=== PATIENT | female | born 1980 | race Two or more races ===

== ENCOUNTER 2017-08-01 11:15 | Observation (INO) | payer MEDICAID ==
[~2017-08-01] VITALS: Ht 160 cm; Wt 54.4 kg
[2017-08-01] MEDS ORDERED: BETAMETHASONE ACET (6MG/ML) 5ML VIAL ONE (11:52)
[2017-08-01] MEDS ORDERED: PREN-96 PO (11:59)
[2017-08-01] MEDS ORDERED: BETAMETHASONE ACET (6MG/ML) 5ML VIAL IM ONE (12:00)
[2017-08-02] MEDS ORDERED: PROG200C6 PO (17:44)
== END 2017-08-01 12:25 | disposition home or self-care (01) | DRG 566 ==
LOC: LDRP 11:15
PROVIDERS: ADMIT Obstetrics & Gynecology; ATTEND Obstetrics & Gynecology
DX: O26.93 Pregnancy related conditions, unspecified, third trimester (principal); O09.523 Supervision of elderly multigravida, third trimester; Z3A.28 28 weeks gestation of pregnancy
CPT/HCPCS: 59025; 81002; 96372; G0378; J0702

== ENCOUNTER 2017-08-02 12:25 | Observation (INO) | payer MEDICAID ==
[~2017-08-02 12:25] MED LIST: PREN-96 PO
[2017-08-02] MEDS ORDERED: BETAMETHASONE ACET (6MG/ML) 5ML VIAL IM ONE (13:00)
[2017-08-02] MEDS ORDERED: PROG200C6 PO (17:44)
== END 2017-08-02 13:25 | disposition home or self-care (01) | DRG 563 ==
LOC: LDRP 12:25
PROVIDERS: ADMIT Obstetrics & Gynecology; ATTEND Obstetrics & Gynecology
DX: O60.00 Preterm labor without delivery, unspecified trimester (principal); O09.529 Supervision of elderly multigravida, unspecified trimester; Z3A.00 Weeks of gestation of pregnancy not specified
CPT/HCPCS: 59025; 81002; 96372; G0378

== ENCOUNTER 2017-08-04 14:10 | Observation (INO) | payer MEDICAID ==
[~2017-08-04 14:10] MED LIST changes: +PROG200C6 PO
[2017-08-04] MEDS ORDERED: PROGSUP4 VA (14:54)
== END 2017-08-04 15:10 | disposition home or self-care (01) | DRG 566 ==
LOC: LDRP 14:10
PROVIDERS: ADMIT Obstetrics & Gynecology; ATTEND Obstetrics & Gynecology
DX: O36.8130 Decreased fetal movements, third trimester, not applicable or unspecified (principal); O60.03 Preterm labor without delivery, third trimester; Z3A.28 28 weeks gestation of pregnancy
CPT/HCPCS: 59025; 81002; G0378

== ENCOUNTER 2017-08-09 14:00 | Observation (INO) | payer MEDICAID ==
[~2017-08-09 14:00] MED LIST changes: -PROG200C6 PO; +PROGSUP4 VA
== END 2017-08-09 15:35 | disposition home or self-care (01) | DRG 566 ==
LOC: LDRP 14:00
PROVIDERS: ADMIT Specialist; ATTEND Specialist
DX: O26.893 Other specified pregnancy related conditions, third trimester (principal); Z3A.29 29 weeks gestation of pregnancy
CPT/HCPCS: 59025; 76815; 81002; G0378

== ENCOUNTER 2017-08-16 13:10 | Observation (INO) | payer MEDICAID | END 2017-08-16 15:25 | disposition home or self-care (01) | DRG 563 | LOC: LDRP 13:10 | PROVIDERS: ADMIT Specialist; ATTEND Specialist | DX: O60.03 Preterm labor without delivery, third trimester (principal); Z3A.30 30 weeks gestation of pregnancy | CPT/HCPCS: 59025; 76815; 81002; G0378 ==

== ENCOUNTER 2017-08-21 13:05 | Observation (INO) | payer MEDICAID ==
[~2017-08-21 13:05] MED LIST changes: -PROGSUP4 VA
== END 2017-08-21 14:00 | disposition home or self-care (01) | DRG 566 ==
LOC: LDRP 13:05
PROVIDERS: ADMIT Obstetrics & Gynecology; ATTEND Obstetrics & Gynecology
DX: O26.893 Other specified pregnancy related conditions, third trimester (principal); Z3A.30 30 weeks gestation of pregnancy
CPT/HCPCS: 59025; 81002; G0378

== ENCOUNTER 2017-08-28 12:35 | Observation (INO) | payer MEDICAID ==
[2017-08-28] MEDS ORDERED: NIF10C PO (13:07)
== END 2017-08-28 14:00 | disposition home or self-care (01) | DRG 563 ==
LOC: LDRP 12:35
PROVIDERS: ADMIT Specialist; ATTEND Specialist
DX: O60.03 Preterm labor without delivery, third trimester (principal); Z3A.31 31 weeks gestation of pregnancy
CPT/HCPCS: 76815; G0378; 59025; 81002

== ENCOUNTER 2017-09-04 13:20 | Observation (INO) | payer MEDICAID ==
[~2017-09-04 13:20] MED LIST changes: +NIF10C PO
== END 2017-09-04 14:30 | disposition home or self-care (01) | DRG 566 ==
LOC: LDRP 13:20
PROVIDERS: ADMIT Obstetrics & Gynecology; ATTEND Obstetrics & Gynecology
DX: O24.419 Gestational diabetes mellitus in pregnancy, unspecified control (principal); O46.93 Antepartum hemorrhage, unspecified, third trimester; Z3A.31 31 weeks gestation of pregnancy
CPT/HCPCS: 59025; 81002; G0378

== ENCOUNTER 2017-09-11 13:30 | Observation (INO) | payer MEDICAID | END 2017-09-11 14:50 | disposition home or self-care (01) | DRG 563 | LOC: LDRP 13:30 | PROVIDERS: ADMIT Obstetrics & Gynecology; ATTEND Obstetrics & Gynecology | DX: O60.03 Preterm labor without delivery, third trimester (principal); Z3A.33 33 weeks gestation of pregnancy | CPT/HCPCS: 59025; 76815; 81002; G0378 ==

== ENCOUNTER 2017-09-18 11:30 | Observation (INO) | payer MEDICAID | END 2017-09-18 12:50 | disposition home or self-care (01) | DRG 566 | LOC: LDRP 11:30 | PROVIDERS: ADMIT Obstetrics & Gynecology; ATTEND Obstetrics & Gynecology | DX: O26.893 Other specified pregnancy related conditions, third trimester (principal); M54.9 Dorsalgia, unspecified; R10.30 Lower abdominal pain, unspecified; Z3A.34 34 weeks gestation of pregnancy | CPT/HCPCS: 59025; 81002; G0378 ==

== ENCOUNTER 2017-09-25 10:45 | Observation (INO) | payer MEDICAID ==
[~2017-09-25] VITALS: Ht 162.6 cm; Wt 56.7 kg
[2017-09-25] MEDS: TERBUTALINE SULFATE 1 MG/ML 1ML VIAL SC SCH ×3 (11:51→12:20)
[2017-09-25] MEDS ORDERED: NIFEdipine 10 MG CAP ONE (12:32)
[2017-09-25] MEDS ORDERED: NIFEdipine 10 MG CAP PO ONE (12:45)
== END 2017-09-25 12:55 | disposition home or self-care (01) | DRG 563 ==
LOC: LDRP 10:45
PROVIDERS: ADMIT Specialist; ATTEND Specialist
DX: O60.03 Preterm labor without delivery, third trimester (principal); Z3A.35 35 weeks gestation of pregnancy
CPT/HCPCS: 59025; 81002; 96372; G0378

== ENCOUNTER 2017-10-02 10:15 | Observation (INO) | payer MEDICAID | END 2017-10-02 10:55 | disposition home or self-care (01) | DRG 566 | LOC: LDRP 10:15 | PROVIDERS: ADMIT Obstetrics & Gynecology; ATTEND Obstetrics & Gynecology | DX: O26.93 Pregnancy related conditions, unspecified, third trimester (principal); Z3A.36 36 weeks gestation of pregnancy | CPT/HCPCS: 59025; 81002; G0378 ==

== ENCOUNTER 2017-10-09 10:25 | Observation (INO) | payer MEDICAID | END 2017-10-09 12:10 | disposition home or self-care (01) | DRG 566 | LOC: LDRP 10:25 | PROVIDERS: ADMIT Obstetrics & Gynecology; ATTEND Obstetrics & Gynecology | DX: O26.893 Other specified pregnancy related conditions, third trimester (principal); Z3A.37 37 weeks gestation of pregnancy | CPT/HCPCS: 59025; 76818; 81002; G0378 ==

== ENCOUNTER 2017-10-16 10:30 | Observation (INO) | payer MEDICAID ==
[~2017-10-16 10:30] MED LIST changes: -NIF10C PO
[2017-10-16] MEDS ORDERED: PREN-96 PO (11:57)
== END 2017-10-16 11:45 | disposition home or self-care (01) | DRG 566 ==
LOC: LDRP 10:30
PROVIDERS: ADMIT Obstetrics & Gynecology; ATTEND Obstetrics & Gynecology
DX: O26.893 Other specified pregnancy related conditions, third trimester (principal); Z3A.38 38 weeks gestation of pregnancy
CPT/HCPCS: 59025; 81002; G0378

== ENCOUNTER 2017-10-23 10:38 | Observation (INO) | payer MEDICAID | END 2017-10-23 13:00 | disposition home or self-care (01) | DRG 566 | LOC: LDRP 10:38 | PROVIDERS: ADMIT Obstetrics & Gynecology; ATTEND Obstetrics & Gynecology | DX: O32.1XX0 Maternal care for breech presentation, not applicable or unspecified (principal); O48.0 Post-term pregnancy; Z3A.40 40 weeks gestation of pregnancy | CPT/HCPCS: 59025; 76818; 81002; G0378 ==

== ENCOUNTER 2017-10-24 08:40 | Inpatient (IN) | payer MEDICAID ==
[2017-10-24] VITALS (11 sets, daily range): BP systolic 97–139; BP diastolic 63–84
[~2017-10-24] VITALS: Ht 160 cm; Wt 62.6 kg
[2017-10-24 09:49] LABS: Basophils # (auto) 0 uL; Basophils % (auto) 0.3 % (0.0-2.0); Eosinophils # (auto) 0.1 uL; Eosinophils % (auto) 1.2 % (0.0-7.0); Hematocrit 43.9 % (36.0-46.0); Hemoglobin 14.8 g/dL (12.2-16.2); Lymphocytes # (auto) 1.6 uL; Lymphocytes % (auto) 13.9 % (10.0-50.0); Mean Corpuscular Hemoglobin 30.2 pg (28.0-32.0); Mean Corpuscular Hgb Conc. 33.6 g/dL (32.0-36.0); Mean Corpuscular Volume 89.9 fL (80.0-100.0); Monocytes # (auto) 0.8 uL; Neutrophils # (auto) 9.1 uL; Neutrophils % (auto) 77.6 % (37.0-80.0); Nucleated Red Blood Cells % 0.1 %; Platelet Count (auto) 279 10^3/uL (140-450); Red Cell Distribution Width 14.2 % (11.8-14.3); White Blood Cell 11.8 10^3/uL (4.4-10.8)
[2017-10-24 09:56] LABS: Urine Bilirubin Negative (Negative); Urine Blood Negative /uL (Negative); Urine Color Yellow (Yellow); Urine Glucose Normal (Normal); Urine Ketone Negative (Negative); Urine Mucus FEW (None Seen); Urine Nitrite Negative (Negative); Urine RBC 4 /hpf (0 - 4); Urine Squamous Epithelial Cell FEW /hpf (<5); Urine Urobilinogen Normal (Negative)
[2017-10-24] MEDS: LACTATED RINGER'S 1,000 ML IV SCH ×3 (10:00→12:07)
[2017-10-24 10:03] LABS: INR 0.87 (0.9-1.15); Partial Thromboplastin Time 24.3 sec (22.64-33.71); Prothrombin Time 9.5 sec (9.37-12.3)
[2017-10-24 10:18] LABS: Albumin 2.9 g/dL (3.4-5.0); BUN/Creatinine Ratio 16.4; Bilirubin, Total 0.3 mg/dL (0.2-1.0); Calcium 8.9 mg/dL (8.5-10.1); Potassium 3.9 mmol/L (3.5-5.1); Total Protein 7.9 g/dL (6.4-8.2)
[2017-10-24] MEDS ORDERED: fentaNYL CITRATE 100 MCG/2 ML VL ONE (12:48)
[2017-10-24] MEDS ORDERED: MIDAZOLAM HCL 1MG/1ML-2 ML VIAL ONE (12:48)
[2017-10-24] MEDS ORDERED: MORPHINE SULF(PF) 0.5MG/ML 10ML VIAL ONE (12:48)
[2017-10-24] MEDS ORDERED: TETRACAINE 1% INJ 2 ML VIAL IJ ONE (12:51)
[2017-10-24] MEDS ORDERED: ceFAZolin 1GM VL ONE (13:15)
[2017-10-24] MEDS ORDERED: OXYTOCIN 10 UNIT/ML 10ML VIAL ONE (13:15)
[2017-10-24] MEDS ORDERED: CARBOPROST TROMETHAMINE 250 MCG/1ML VIAL IM ONE (13:22)
[2017-10-24] MEDS ORDERED: ONDANSETRON HCL 4 MG/2 ML VIAL ONE (13:24)
[2017-10-24] MEDS ORDERED: MORPHINE SULF INJ 2 MG/ML SYRINGE 1ML IV PRN (13:45)
[2017-10-24] MEDS ORDERED: LACT. RINGERS/OXYTOCIN 20UNITS 1,000 ML IV SCH (13:45)
[2017-10-24] MEDS ORDERED: OXYTOCIN 10UNIT/ML 1ML VIAL ONE (14:07)
[2017-10-24] MEDS ORDERED: ONDANSETRON HCL 4 MG/2 ML VIAL IV PRN (14:15)
[2017-10-24] MEDS ORDERED: NALOXONE HCL 0.4 MG/ML VIAL IV PRN (14:15)
[2017-10-24] MEDS ORDERED: ePHEDrine SULFATE 50 MG/ML AMP IV PRN (14:15)
[2017-10-24] MEDS ORDERED: LABETALOL HCL 5 MG/ML 4ML SYRINGE IV PRN (14:15)
[2017-10-24] MEDS ORDERED: DEXAMETHASONE SOD PHOS 10MG/1ML VIAL INJ IV PRN (14:15)
[2017-10-24] MEDS ORDERED: HYDROmorphone HCL 2 MG/ML VL IV PRN (14:15)
[2017-10-24] MEDS ORDERED: NALBUPHINE HCL 10 MG/1ml INJECTION SUBCUT ONE (14:15)
[2017-10-24] MEDS ORDERED: MIDAZOLAM HCL 1MG/1ML-2 ML VIAL IV PRN (14:15)
[2017-10-24] MEDS ORDERED: KETOROLAC TROMETH 30 MG/ML 1ML VIAL IV PRN (14:15)
[2017-10-24] MEDS ORDERED: diphenhdrAMINE HCL 50 MG/1 ML VL IV PRN (14:15)
[2017-10-24] MEDS: KETOROLAC TROMETH 30 MG/ML 1ML VIAL IV PRN (17:24)
[2017-10-24 20:17] LABS: Basophils # (auto) 0.1 uL; Basophils % (auto) 0.4 % (0.0-2.0); Eosinophils # (auto) 0.1 uL; Eosinophils % (auto) 0.7 % (0.0-7.0); Hematocrit 38.4 % (36.0-46.0); Hemoglobin 12.7 g/dL (12.2-16.2); Lymphocytes # (auto) 2.4 uL; Lymphocytes % (auto) 15.7 % (10.0-50.0); Mean Corpuscular Hemoglobin 29.8 pg (28.0-32.0); Mean Corpuscular Hgb Conc. 33.1 g/dL (32.0-36.0); Mean Corpuscular Volume 90.2 fL (80.0-100.0); Mean Platelet Volume 8.8 fL (6.9-10.8); Monocytes # (auto) 0.9 uL; Neutrophils # (auto) 11.6 uL; Neutrophils % (auto) 77.2 % (37.0-80.0); Platelet Count (auto) 248 10^3/uL (140-450); Red Cell Distribution Width 14.3 % (11.8-14.3)
[2017-10-25] VITALS (9 sets, daily range): BP systolic 91–119; BP diastolic 55–77
[2017-10-25] MEDS: ceFAZolin 1GM/50ML 50 ML IV SCH ×3 (01:12→14:56)
[2017-10-25] MEDS: KETOROLAC TROMETH 30 MG/ML 1ML VIAL IV PRN (05:02)
[2017-10-25 06:32] LABS: Basophils # (auto) 0.1 uL; Basophils % (auto) 0.4 % (0.0-2.0); Eosinophils # (auto) 0.1 uL; Eosinophils % (auto) 0.5 % (0.0-7.0); Hematocrit 36.2 % (36.0-46.0); Lymphocytes # (auto) 1.5 uL; Lymphocytes % (auto) 9.5 % (10.0-50.0); Mean Corpuscular Hemoglobin 29.9 pg (28.0-32.0); Mean Corpuscular Hgb Conc. 33.2 g/dL (32.0-36.0); Mean Corpuscular Volume 89.9 fL (80.0-100.0); Mean Platelet Volume 8.7 fL (6.9-10.8); Monocytes # (auto) 0.9 uL; Monocytes % (auto) 5.6 % (0.0-12.0); Platelet Count (auto) 244 10^3/uL (140-450); Red Cell Distribution Width 14.2 % (11.8-14.3); White Blood Cell 15.5 10^3/uL (4.4-10.8)
[2017-10-25] MEDS: LACTATED RINGER'S 1,000 ML IV SCH ×2 (07:05→17:05)
[2017-10-25] MEDS ORDERED: HYDROcodone-ACET 5/325MG TAB PO PRN (07:15)
[2017-10-25] MEDS ORDERED: BISACODYL 10 MG RECT SUPP PR PRN (07:15)
[2017-10-25] MEDS: DOCUSATE SOD 100 MG CAP PO SCH ×2 (10:21→22:34)
[2017-10-25] MEDS: SIMETHICONE 80 MG CHEWABLE TABLET PO SCH ×3 (11:50→22:34)
[2017-10-25] MEDS: HYDROcodone-ACET 5/325MG TAB PO PRN ×2 (11:50→22:34)
[2017-10-25] MEDS: IBUPROFEN 800 MG TAB PO PRN (16:25)
[2017-10-25] MEDS ORDERED: ceFAZolin 1GM/50ML 50 ML IV ONE (16:50)
[2017-10-25 17:49] LABS: Basophils # (auto) 0.1 uL; Basophils % (auto) 0.5 % (0.0-2.0); Eosinophils # (auto) 0 uL; Eosinophils % (auto) 0.2 % (0.0-7.0); Hematocrit 36.5 % (36.0-46.0); Hemoglobin 12.1 g/dL (12.2-16.2); Lymphocytes # (auto) 1.4 uL; Lymphocytes % (auto) 8.7 % (10.0-50.0); Mean Corpuscular Hemoglobin 29.6 pg (28.0-32.0); Mean Corpuscular Hgb Conc. 33.2 g/dL (32.0-36.0); Mean Corpuscular Volume 89.1 fL (80.0-100.0); Mean Platelet Volume 8.7 fL (6.9-10.8); Monocytes # (auto) 0.9 uL; Neutrophils # (auto) 13.5 uL; Neutrophils % (auto) 84.6 % (37.0-80.0); Platelet Count (auto) 263 10^3/uL (140-450); Red Cell Distribution Width 14.4 % (11.8-14.3); White Blood Cell 15.9 10^3/uL (4.4-10.8)
[2017-10-25 20:52] LABS: Urine Bilirubin Negative (Negative); Urine Blood 1+ /uL (Negative); Urine Color Yellow (Yellow); Urine Glucose Normal (Normal); Urine Ketone Negative (Negative); Urine Nitrite Negative (Negative); Urine RBC 9 /hpf (0 - 4); Urine Squamous Epithelial Cell FEW /hpf (<5); Urine Urobilinogen Normal (Negative)
[2017-10-26] MEDS: LACTATED RINGER'S 1,000 ML IV SCH (03:05)
[2017-10-26 03:25] VITALS: BP 109/66
[2017-10-26] MEDS: IBUPROFEN 800 MG TAB PO PRN ×3 (03:47→21:51)
[2017-10-26] MEDS: HYDROcodone-ACET 5/325MG TAB PO PRN (05:54)
[2017-10-26] MEDS: SIMETHICONE 80 MG CHEWABLE TABLET PO SCH ×4 (05:54→21:53)
[2017-10-26 08:00] VITALS: BP 102/65
[2017-10-26] MEDS: DOCUSATE SOD 100 MG CAP PO SCH ×2 (09:58→21:51)
[2017-10-26 12:05] VITALS: BP 106/67
[2017-10-26 16:00] VITALS: BP 104/66
[2017-10-26 19:10] VITALS: BP 125/75
[2017-10-26 23:00] VITALS: BP 111/71
[2017-10-27 03:30] VITALS: BP 111/61
[2017-10-27] MEDS: SIMETHICONE 80 MG CHEWABLE TABLET PO SCH (05:51)
[2017-10-27] MEDS: IBUPROFEN 800 MG TAB PO PRN (05:52)
[2017-10-27 08:09] VITALS: BP 112/71
[2017-10-27] MEDS: DOCUSATE SOD 100 MG CAP PO SCH (10:01)
== END 2017-10-27 11:52 | disposition home or self-care (01) | DRG 540 ==
LOC: LDRP 08:40
PROVIDERS: ADMIT Obstetrics & Gynecology; ATTEND Obstetrics & Gynecology
PROC: 10D00Z1 Extraction of Products of Conception, Low, Open Approach (ICD-10-PCS; principal; 2017-10-24 12:58)
DX: O32.1XX0 Maternal care for breech presentation, not applicable or unspecified (principal); O09.523 Supervision of elderly multigravida, third trimester; O34.211 Maternal care for low transverse scar from previous cesarean delivery; Z37.0 Single live birth; Z3A.40 40 weeks gestation of pregnancy
CPT/HCPCS: 36415; 51702; 59025; 80053; 81001; 81002; 85025; 85610; 85730; 86850; 86900; 86901; 96365; 96366; 96374; J0690; J1885; J2250; J2405; J2590